=== PATIENT | female | born 1960 | race Caucasian/White ===

== ENCOUNTER → 2017-07-19 16:49 | Outpatient (CLI) | payer BC, SELFPAY ==
--- NOTE | 2017-07-19 | ASPS_PTH ---
PATIENT: KELY DIAS LOC: [facility] U#:[id number] AGE/SX: 64/F ROOM: RE07/19/[address]: Dr. Kalani Worthy MD : 1960 BED: DIS: SPEC #: [id number] RECD: 07/19/17 16:46 STATUS: [place] MAYI #: [id number] GEETHA: 07/19/17 00:[address]: Kalani Worthy DEPT: CYTOLOGY RECD BY: Chris Ellison Tissues: Left breast, NOS Procedures: Pap Stain (control) Special Stain Group II Cytology Other HEADER OPERATION: Left breast drainage PRE-OP DIAGNOSIS: Left breast bloody drainage; nipple discharge TISSUE SUBMITTED: Left breast drainage 6 slides DIAGNOSIS CYTOLOGY Left breast drainage (smears): Negative for malignant cells. Consistent with cyst contents. See cytology study and comment. SJ:alexandru 07/21/17 COMMENT Correlation with clinical findings and appropriate follow up are necessary. CYTOLOGY STUDY Slides are reviewed. The specimen entirely consists of macrophages. CYTOLOGY GROSS Received are six smears labeled with the patient's name and designated per the requisition as left breast. Submitted for staining. 07/20/17 TC:5 CPT: 78800
== END ==
PROVIDERS: Visit Provider Surgery
DX: N64.52 Nipple discharge (principal)
CPT/HCPCS: 88161; 88313